=== PATIENT | female | born 1970 | race Caucasian/White ===

== ENCOUNTER 2023-02-03 08:45 | Outpatient (CLI) | payer OTHER ==
[2023-02-03 12:26] LABS: BUN - BLOOD UREA NITROGEN 15 mg/dL (6-20); CALCIUM 9.7 mg/dL (8.5-10.3); CARBON DIOXIDE - CO2 28 mmol/L (21-32); CHLORIDE 107 mmol/L (101-111); CHOL/HDL RATIO 3.9 (<4.4); CHOLESTEROL 213 mg/dL; GFR - MDRD 58 (>89); GLUCOSE 107 mg/dL (74-104); HDL CHOLESTEROL 54 mg/dL; LDL CHOLESTEROL,CALCULATED 134 mg/dL; LDL/HDL RATIO 2.5 (<4.4); POTASSIUM 4.3 mmol/L (3.5-4.5); SODIUM 140 mmol/L (135-145); TRIGLYCERIDES 124 mg/dL (48-352); VLDL CHOLESTEROL 25 mg/dL
[2023-02-03 13:05] LABS: ESTIMATED AVERAGE GLUCOSE 120 mg/dL (70-100); HEMOGLOBIN A1c% 5.8 % (4.27-6.07)
== END 2023-02-03 08:46 | disposition home or self-care (01) ==
LOC: LAB.N 08:45
PROVIDERS: ATTEND Nurse Practitioner Family
DX: E78.5 Hyperlipidemia, unspecified (principal); R73.03 Prediabetes
CPT/HCPCS: 36415; 80048; 80061; 83036; 83721

== ENCOUNTER 2023-07-16 10:15 | Outpatient (CLI) | payer OTHER ==
--- NOTE | 2023-07-16 20:16 | XRAY Report ---
PROCEDURE: Foot 3+V RT (Weight Bearing) INDICATIONS: RIGHT FOOT INJURY TECHNIQUE: 3 views of the foot were acquired. COMPARISON: None. FINDINGS: Bones: No acute fracture or dislocation. No suspicious bony lesions. Small posterior calcaneal ent hesophyte. Scattered degenerative changes of interphalangeal joints of the toes. Soft tissues: No suspicious soft tissue calcifications IMPRESSION: No acute osseous abnormality. If there is clinical concern or persistent symptoms, additional imaging such as repeat radiographs or advanced imaging (e.g. CT, MRI) may be helpful for further evaluation. Reviewed by: Nicolas Fisher MD on 07/16/2023 8:15 PM PDT Approved by: Nicolas Fisher MD on 07/16/2023 8:15 PM PDT Station ID: [id number]
== END 2023-07-16 10:16 | disposition home or self-care (01) ==
LOC: DI 10:15
PROVIDERS: ATTEND Podiatrist
DX: S99.921A Unspecified injury of right foot, initial encounter (principal)

== ENCOUNTER 2023-07-28 15:47 | Outpatient (CLI) | payer OTHER ==
--- NOTE | 2023-07-29 15:35 | MRI Report ---
PROCEDURE: Ankle RT WO INDICATIONS: RT FOOT/ANKLE INJURY TECHNIQUE: Noncontrast sagittal T1 spin echo and T2 fast spin echo with fat saturation, axial proton density fas t spin echo and T2 fast spin echo with fat saturation, coronal T1 spin echo and T2 fast spin echo wit h fat saturation through the ankle/hindfoot. COMPARISON: Right foot radiograph dated 07/16/2023. FINDINGS: Image quality: Excellent. Bones and joints: Mild midfoot and hindfoot joint osteoarthritic changes are seen with joint space na rrowing and subchondral sclerosis more notably involving second and third TMT joints. No bone marrow contusions or fractures. No hindfoot coalitions. No osteochondral injuries of the talar dome. Small amount of tibiotalar joint effusion is seen, no loose bodies. Medial structures: The posterior tibialis tendon is thickened near its distal insertion. The flexor digitorum longus, and flexor hallucis longus tendons are intact. Small to moderate amount of fluid di stending flexor tendon sheath is noted. The posterior tibial neurovascular bundle appears normal with in the tarsal tunnel, without extrinsic mass effect. The deltoid ligament is intact. Thickened spring ligament with intrasubstance T2 hyperintense signal near its distal insertion is seen. Lateral structures: The anterior talofibular ligament is thickened. The calcaneofibular, and posteri or talofibular ligaments appear intact. More superiorly, the anterior and posterior tibiofibular lig aments appear normal, as is the intermalleolar ligament. The tibiofibular syndesmosis is normal in w idth at 2 mm or less. The peroneus brevis tendon is intact. The peroneus longus tendon is thickened a t the level of lateral malleolus extending to its distal insertion. The sinus tarsi demonstrates norm al fatty signal, without edema, fibrosis, or cyst formation. Visualized sinus tarsi components (cerv ical ligament, interosseous talocalcaneal ligament, roots of the inferior extensor retinaculum) appea r normal. Anterior structures: The tibialis anterior, extensor hallucis longus, and extensor digitorum longus tendons appear intact. Posterior and plantar structures: Achilles tendon is intact. Mildly thickened medial band of plantar fascia with intrasubstance T2 hyperintense signal is seen. No abductor digiti quinti muscle atrophy to suggest Chao neuropathy. IMPRESSION: 1. Mild midfoot and hindfoot joint osteoarthritis. No fracture or dislocation. No osteochondral injur ies of talar dome. Small joint effusion without intra-articular loose bodies. 2. Tenosynovitis involving flexor tendons with distal posterior tibialis tendinosis. 3. Low-grade intrasubstance partial thickness involving spring ligament near its distal insertion. 4. Low-grade ATFL sprain. 5. Mild peroneus longus tendinosis at the level of lateral malleolus extending to its distal insertio n. 6. Mildly thickened medial band of plantar fascia at its plantar calcaneal insertion suggestive of lo w-grade plantar fasciitis. Reviewed by: Duane Stallworth MD on 07/29/2023 3:34 PM PDT Approved by: Duane Stallworth MD on 07/29/2023 3:34 PM PDT Station ID: [id number]
== END 2023-07-28 15:48 | disposition home or self-care (01) ==
LOC: DI 15:47
PROVIDERS: ATTEND Podiatrist
DX: M19.071 Primary osteoarthritis, right ankle and foot (principal); M25.471 Effusion, right ankle; S93.491A Sprain of other ligament of right ankle, initial encounter; M65.9 Synovitis and tenosynovitis, unspecified